=== PATIENT | male | born 1995 | race Hispanic/Latino ===

== ENCOUNTER 2025-01-31 22:06 | Emergency (ER) | payer OTHER ==
[~2025-01-31] VITALS: Ht 175.3 cm; Wt 101.2 kg
[2025-01-31] MEDS: LACTATED RINGER'S 1,000 ML IV ONE (23:01)
[2025-01-31] MEDS: ACETAMINOPHEN 325 MG TAB PO ONE (23:01)
[2025-01-31] MEDS: SODIUM CHLORIDE 0.9% 1000ML 1,000 ML IV STA (23:02)
[2025-02-01 00:30] VITALS: PULSE 103; RESP 18; TEMP 101
[2025-02-01 00:40] VITALS: BP 139/86; PULSE 103; RESP 18; TEMP 101; O2SAT 98
== END 2025-02-01 00:40 | disposition home or self-care (01) ==
LOC: FSED 22:35
DX: R50.9 Fever, unspecified (principal); B34.9 Viral infection, unspecified; T73.3XXA Exhaustion due to excessive exertion, initial encounter; Z11.52 Encounter for screening for COVID-19
CPT/HCPCS: 0223U; 87400; 99283; J7030; J7121